=== PATIENT | female | born 1965 | race Hispanic/Latino ===

== ENCOUNTER 2018-03-09 12:56 | Outpatient (CLI) | payer BC | END 2018-03-09 12:57 | disposition home or self-care (01) | LOC: BICULT 12:56 | PROVIDERS: ATTEND Family Medicine | DX: K11.20 Sialoadenitis, unspecified (principal) | CPT/HCPCS: 76999 ==

== ENCOUNTER 2018-09-19 15:09 | Outpatient (CLI) | payer BC ==
--- NOTE | 2018-09-19 18:18 | MRI ---
MRI LUMBAR SPINE NONCONTRAST: DATE: 09/19/18 HISTORY: 53-year-old female with low back pain, M54.5, and right lumbar radiculopathy. COMPARISON: No prior MRIs of lumbar spine. FINDINGS: Five lumbar-type vertebrae are demonstrated on plain radiograph of 07/12/18. Vertebral body heights a re maintained. Bone marrow signal is normal. No spondylolisthesis. Conus medullaris terminates at upp er L2 level. Cauda equina is arranged in a symmetrical, normal distribution throughout the thecal sac . T12-L1: Normal. L1-2: Normal. L2-3: Normal. L3-4: Disc desiccation and moderate disc space narrowing. Diffuse disc bulge. No neural foraminal st enosis. No significant central spinal canal stenosis. No high grade facet DJD. L4-5: Minimal disc space narrowing. Left lateral and far lateral shallow disc protrusion with annula r fissure. No right neural foraminal stenosis. Minimal left neural foraminal stenosis. No central melvi nosis. Mild bilateral facet DJD. L5-S1: Mild to moderate disc space narrowing. Mild diffuse disc bulge. No neural foraminal stenosis and no significant central stenosis. Shallow central and bilateral paracentral disc protrusion (with mild annular fissure) indents the ventral aspect of the thecal sac, and contacts the bilateral S1 ner ve roots without displacing them. Mild bilateral facet degenerative changes. IMPRESSION: 1. Mild lumbar spondylosis, with degenerative disc changes at the last three levels, most prominentl y at L3-4. 2. No high grade central stenosis, high grade neural foraminal stenosis, or paula nerve root alma james, at any level. 3. All levels superior to L3 are normal. JN R POS: SLADE
== END 2018-09-19 15:10 | disposition home or self-care (01) ==
LOC: BICMRI 15:09
PROVIDERS: ATTEND Family Medicine
DX: M54.5 Low back pain (principal); M47.896 Other spondylosis, lumbar region; M48.061 Spinal stenosis, lumbar region without neurogenic claudication
CPT/HCPCS: 72148

== ENCOUNTER 2018-12-15 19:30 | Outpatient (CLI) | payer BC | END 2018-12-15 19:31 | disposition home or self-care (01) | LOC: SLEEPLAB 19:30 | PROVIDERS: ATTEND Family Medicine | DX: G47.33 Obstructive sleep apnea (adult) (pediatric) (principal); R53.83 Other fatigue; R06.83 Snoring; G47.10 Hypersomnia, unspecified; K21.9 Gastro-esophageal reflux disease without esophagitis; G47.00 Insomnia, unspecified; E66.9 Obesity, unspecified; Z68.37 Body mass index [BMI] 37.0-37.9, adult | CPT/HCPCS: 95811 ==

== ENCOUNTER 2019-02-22 08:17 | Outpatient (CLI) | payer BC ==
--- NOTE | 2019-03-03 08:03 | MMO ---
Bilateral MAMMO Bilat Screen [facility]. CLINICAL HISTORY: Patient is 53 years old and is seen for screening. The patient has no family history of breast cancer. The patient has no personal history of cancer. VIEWS: The views performed were: bilateral craniocaudal with tomosynthesis and bilateral mediolateral oblique with tomosynthesis. FILMS COMPARED: The present examination has been compared to a prior imaging study performed at [facility] on 09/21/2017. MAMMOGRAM FINDINGS: There are scattered fibroglandular densities. There are no suspicious masses, suspicious calcifications, or new areas of architectural distortion. IMPRESSION: THERE IS NO MAMMOGRAPHIC EVIDENCE OF MALIGNANCY. A ROUTINE FOLLOW-UP MAMMOGRAM IN 1 YEAR IS RECOMMENDED. THE RESULTS OF THIS EXAM WERE SENT TO THE PATIENT. ACR BI-RADS Category 1 - Negative MAMMOGRAPHY NOTE: 1. A negative mammogram report should not delay a biopsy if a dominant of clinically suspicious mass is present. 2. Approximately 10% to 15% of breast cancers are not detected by mammography. 3. Adenosis and dense breasts may obscure an underlying neoplasm.
== END 2019-02-22 08:18 | disposition home or self-care (01) ==
LOC: BICMAMMO 08:17
PROVIDERS: ATTEND Family Medicine
DX: Z12.31 Encounter for screening mammogram for malignant neoplasm of breast (principal)
CPT/HCPCS: 77063; 77067